=== PATIENT | male | born 1935 | race Caucasian/White ===

== ENCOUNTER 2019-02-07 14:47 | Outpatient (CLI) | END 2019-02-07 15:08 | disposition short-term general hospital (02) | LOC: AMBL 14:47 | PROVIDERS: ATTEND Emergency Medicine | DX: R40.4 Transient alteration of awareness (principal); R41.82 Altered mental status, unspecified; F02.80 Dementia in other diseases classified elsewhere, unspecified severity, without behavioral disturbance, psychotic disturbance, mood disturbance, and anxiety; R40.2411 Glasgow coma scale score 13-15, in the field [EMT or ambulance] ==